=== PATIENT | female | born 1995 | race Two or more races ===

== ENCOUNTER 2023-12-13 21:17 | Emergency (ER) | payer MEDICAID, OTHER ==
[~2023-12-13] VITALS: Ht 152.4 cm; Wt 49.0 kg
[2023-12-13 23:23] VITALS: BP 98/62; TEMP 98.1; O2SAT 96
[2023-12-13] MEDS ORDERED: IBUPROFEN 600 MG TABLET ONE (23:44)
[2023-12-13] MEDS: IBUPROFEN 600 MG TABLET PO ONE (23:47)
== END 2023-12-14 00:52 | disposition home or self-care (01) ==
LOC: ER 21:27
DX: Z04.1 Encounter for examination and observation following transport accident (principal); Z79.899 Other long term (current) drug therapy; V43.52XA Car driver injured in collision with other type car in traffic accident, initial encounter; Y93.89 Activity, other specified; Y92.410 Unspecified street and highway as the place of occurrence of the external cause; Y99.8 Other external cause status
CPT/HCPCS: 71045-TC